=== PATIENT | male | born 2000 | race Hispanic/Latino ===

== ENCOUNTER 2020-12-04 15:12 | Emergency (ER) | payer BC ==
--- NOTE | 2020-12-04 19:06 | ER ---
Nurse's Notes [facility] Name: Luis Blanchard Age: 20 yrs Sex: Male : 2000 Arrival Date: 12/04/2020 Time: 15:17 Bed 12 Private MD: Diagnosis: Acute upper respiratory infection, unspecified;Coronavirus infection, unspecified;Other coronavirus as the cause of diseases classified elsewhere;Fever, unspecified Presentation: 12/04 15:30 Chief complaint: Patient states: "It started Tuesday with a hot feeling on the left side aa5 of my back and now I just have a headache on the back of my head and fatigued". Denies nausea/vomiting, denies dizziness. Denies fever. Coronavirus screen: fatigue. Ebola Screen: Patient negative for fever greater than or equal to 101.5 degrees Fahrenheit, and additional compatible Ebola Virus Disease symptoms. Initial Sepsis Screen: Does the patient meet any 2 criteria? No. Patient's initial sepsis screen is negative. Does the patient have a suspected source of infection? No. Patient's initial sepsis screen is negative. Risk Assessment: Do you want to hurt yourself or someone else? Patient reports no desire to harm self or others. Onset of symptoms was November 2020. 15:30 Method Of Arrival: Ambulatory aa5 15:30 Acuity: LUIS M 3 aa5 Triage Assessment: 18:30 Headache History: The patient has had previous headaches and this one is similar to iw previous episodes. General: Appears in no apparent distress. Behavior is calm, cooperative. Pain: Pain currently is 8 out of 10 on a pain scale. Pain began. 18:30 Pain: Also complains of no other associated symptoms. iw Historical: - Allergies: 15:32 No Known Allergies; aa5 - PMHx: 15:32 Asthma; aa5 - PSHx: 15:32 None; aa5 - Immunization history:: Client reports having NOT received the Covid vaccine. Flu vaccine is not up to date. - Social history:: Smoking status: Patient denies any tobacco usage or history of. Patient uses street drugs, marijuana. - Family history:: not pertinent. Screenin:05 Abuse screen: Denies threats or abuse. Denies injuries from another. Nutritional iw screening: No deficits noted. Tuberculosis screening: No symptoms or risk factors identified. Fall Risk None identified. Assessment: 18:30 General: Appears in no apparent distress. Behavior is calm, cooperative. Pain: iw Complains of pain in head and neck. Neuro: Level of Consciousness is awake, alert, obeys commands, Oriented to person, place, time, situation, Moves all extremities. Full function Reports headache. Respiratory: Respiratory effort is even, unlabored, Respiratory pattern is regular. Derm: Skin is intact, is healthy with good turgor. Musculoskeletal: Range of motion: intact in all extremities. Vital Signs: 15:30 BP 153 / 100; Pulse 100; Resp 18 S; Temp 99.9(O); Pulse Ox 98% on R/A; Weight 99.79 kg aa5 (R); Height 5 ft. 9 in. (175.26 cm) (R); 15:30 Body Mass Index 32.49 (99.79 kg, 175.26 cm) aa5 Miguel Coma Score: 18:51 Eye Response: spontaneous(4). Verbal Response: oriented(5). Motor Response: obeys jacobo commands(6). Total: 15. ED Course: 15:17 Patient arrived in ED. as 15:30 Arm band placed on. aa5 15:32 Triage completed. aa5 18:30 Patient has correct armband on for positive identification. iw 18:43 Victor Hugo Chi MD is Attending Physician. jacobo 18:48 Kourtney Mariee, RN is Primary Nurse. iw 19:05 Roger Raygoza MD is Referral Physician. jacobo 19:05 No provider procedures requiring assistance completed. Patient did not have IV access iw during this emergency room visit. Administered Medications: 18:56 Drug: Motrin (ibuprofen) 800 mg Route: PO; iw 19:00 Follow up: Response: No adverse reaction iw 18:56 Drug: Zithromax (azithromycin) 500 mg Route: PO; iw 19:00 Follow up: Response: No adverse reaction iw 18:56 Drug: predniSONE 60 mg Route: PO; iw 19:42 Follow up: Response: No adverse reaction iw Outcome: 19:05 Discharge ordered by . jacobo 19:05 Discharged to home ambulatory. iw 19:05 Condition: good 19:05 Discharge instructions given to patient, Instructed on discharge instructions, follow up and referral plans. medication usage, Demonstrated understanding of instructions, follow-up care, medications, Prescriptions given X 4. 19:06 Patient left the ED. iw Signatures: Victor Hugo Chi MD MD cha Martinez, Amelia as Kourtney Mariee RN RN iw Ariane Pastrana RN RN aa5 Corrections: (The following items were deleted from the chart) 15:39 15:30 BP 153 / 100; Pulse 100bpm; Resp 18bpm; Spontaneous; Pulse Ox 98% RA; Temp 97.6F aa5 Temporal; 99.79 kg Reported; Height 5 ft. 9 in. Reported; BMI: 32.4; aa5
--- NOTE | 2020-12-04 19:06 | EDPHYS ---
Physician Documentation [facility] Name: Luis Blanchard Age: 20 yrs Sex: Male : 2000 Arrival Date: 12/04/2020 Time: 15:17 Bed 12 Private MD: ED Physician Victor Hugo Chi HPI: 12/04 18:48 This 20 yrs old Male presents to ER via Ambulatory with complaints of jacobo Headache, Neck and Upper Back Pain. 18:48 The patient complains of pain to the top of head, forehead, left frontal area, left jacobo side of the back of head, left occipital area, left base of the skull, right frontal area, right side of the back of head, right occipital area and right base of the skull. The patient describes the headache as. Onset: The symptoms/episode began/occurred 3 day(s) ago. Associated signs and symptoms: Pertinent positives: malaise. Severity of symptoms: At its worst the pain was mild, in the emergency department the pain is unchanged. Headache History: The patient has had previous headaches and this one is similar to previous episodes. The patient has not experienced similar symptoms in the past. Historical: - Allergies: 15:32 No Known Allergies; aa5 - PMHx: 15:32 Asthma; aa5 - PSHx: 15:32 None; aa5 - Immunization history:: Client reports having NOT received the Covid vaccine. Flu vaccine is not up to date. - Social history:: Smoking status: Patient denies any tobacco usage or history of. Patient uses street drugs, marijuana. - Family history:: not pertinent. ROS: 18:48 Constitutional: Negative for fever, chills, and weight loss, Eyes: Negative for injury, jacobo pain, redness, and discharge, ENT: Negative for injury, pain, and discharge, Neck: Negative for injury, pain, and swelling, Cardiovascular: Negative for chest pain, palpitations, and edema, Respiratory: Negative for shortness of breath, cough, wheezing, and pleuritic chest pain, Abdomen/GI: Negative for abdominal pain, nausea, vomiting, diarrhea, and constipation, : Negative for injury, bleeding, discharge, and swelling, MS/Extremity: Negative for injury and deformity, Skin: Negative for injury, rash, and discoloration, Psych: Negative for depression, anxiety, suicide ideation, homicidal ideation, and hallucinations, Allergy/Immunology: Negative for hives, rash, and allergies, Endocrine: Negative for neck swelling, polydipsia, polyuria, polyphagia, and marked weight changes, Hematologic/Lymphatic: Negative for swollen nodes, abnormal bleeding, and unusual bruising. 18:48 Back: Positive for pain at rest, of the left trapezius, right trapezius, left scapular area and right scapular area. Exam: 18:48 Head/Face: Normocephalic, atraumatic. Eyes: Pupils equal round and reactive to light, jacobo extra-ocular motions intact. Lids and lashes normal. Conjunctiva and sclera are non-icteric and not injected. Cornea within normal limits. Periorbital areas with no swelling, redness, or edema. ENT: Nares patent. No nasal discharge, no septal abnormalities noted. Tympanic membranes are normal and external auditory canals are clear. Oropharynx with no redness, swelling, or masses, exudates, or evidence of obstruction, uvula midline. Mucous membranes moist. Neck: Trachea midline, no thyromegaly or masses palpated, and no cervical lymphadenopathy. Supple, full range of motion without nuchal rigidity, or vertebral point tenderness. No Meningismus. Chest/axilla: Normal chest wall appearance and motion. Nontender with no deformity. No lesions are appreciated. Cardiovascular: Regular rate and rhythm with a normal S1 and S2. No gallops, murmurs, or rubs. Normal PMI, no JVD. No pulse deficits. Respiratory: Lungs have equal breath sounds bilaterally, clear to auscultation and percussion. No rales, rhonchi or wheezes noted. No increased work of breathing, no retractions or nasal flaring. Abdomen/GI: Soft, non-tender, with normal bowel sounds. No distension or tympany. No guarding or rebound. No evidence of tenderness throughout. Back: No spinal tenderness. No costovertebral tenderness. Full range of motion. Skin: Warm, dry with normal turgor. Normal color with no rashes, no lesions, and no evidence of cellulitis. MS/ Extremity: Pulses equal, no cyanosis. Neurovascular intact. Full, normal range of motion. Neuro: Awake and alert, GCS 15, oriented to person, place, time, and situation. Cranial nerves II-XII grossly intact. Motor strength 5/5 in all extremities. Sensory grossly intact. Cerebellar exam normal. Normal gait. Psych: Awake, alert, with orientation to person, place and time. Behavior, mood, and affect are within normal limits. 18:48 Constitutional: The patient appears febrile, obese. 18:48 Musculoskeletal/extremity: DVT Exam: No signs of deep vein thrombosis. no pain, no swelling, no tenderness, negative Homans' sign noted on exam, no appreciated bluish discoloration, no erythema, no increased warmth. Vital Signs: 15:30 BP 153 / 100; Pulse 100; Resp 18 S; Temp 99.9(O); Pulse Ox 98% on R/A; Weight 99.79 kg aa5 (R); Height 5 ft. 9 in. (175.26 cm) (R); 15:30 Body Mass Index 32.49 (99.79 kg, 175.26 cm) aa5 [place] Coma Score: 18:51 Eye Response: spontaneous(4). Verbal Response: oriented(5). Motor Response: obeys jacobo commands(6). Total: 15. MDM: 18:51 Differential diagnosis: cluster headache, otitis, temporal arteritis, tension headache. jacobo Data reviewed: vital signs, nurses notes. Data interpreted: potline monitor: rate is 100 beats/min, rhythm is regular, Pulse oximetry: on room air is 98 %. Counseling: I had a detailed discussion with the patient and/or guardian regarding: the historical points, exam findings, and any diagnostic results supporting the discharge/admit diagnosis, lab results, the need for outpatient follow up, for definitive care, a family practitioner, a package reinspector. 18:57 Patient medically screened. [facility] 12/04 15:34 Order name: Strep [facility] 12/04 15:34 Order name: Flu [facility] 12/04 15:35 Order name: Group A Streptococcus Rapid Sc [facility] 12/04 15:35 Order name: Influenza Screen (A [facility] 12/04 18:02 Order name: Throat Culture [facility] 12/04 18:29 Order name: SARS-COV-2 RT PCR EDMS Administered Medications: 18:56 Drug: Motrin (ibuprofen) 800 mg Route: PO; iw 19:00 Follow up: Response: No adverse reaction iw 18:56 Drug: Zithromax (azithromycin) 500 mg Route: PO; iw 19:00 Follow up: Response: No adverse reaction iw 18:56 Drug: predniSONE 60 mg Route: PO; iw 19:42 Follow up: Response: No adverse reaction iw Disposition Summary: 12/04/20 19:05 Discharge Ordered Location: Home jacobo Problem: new jacobo Symptoms: have improved jacobo Condition: Stable jacobo Diagnosis - Acute upper respiratory infection, unspecified jacobo - Coronavirus infection, unspecified jacobo - Other coronavirus as the cause of diseases classified elsewhere jacobo - Fever, unspecified jacobo Followup: jacobo - With: Private Physician - When: 2 - 3 days - Reason: Recheck today's complaints, Continuance of care, Re-evaluation by your physician Followup: jacobo - With: - When: 2 - 3 days - Reason: Recheck today's complaints, Continuance of care, Re-evaluation by your physician Discharge Instructions: - Discharge Summary Sheet jacobo - Upper Respiratory Infection, Adult jacobo - Viral Respiratory Infection jacobo - Cool Mist Vaporizer jacobo - Upper Respiratory Infection, Adult, Kklh-[id number] jacobo - Cough, Adult, Ldzv-[id number] jacobo - Cough, Adult jacobo - Fever, Adult, Guqi-zz-Urst jacobo - COVID-19 jacobo - COVID-19 Frequently Asked Questions [facility] - COVID-19: Quarantine vs. Isolation - [facility] Forms: - Medication Reconciliation Form [facility] - Thank You Letter [facility] - Antibiotic Education [facility] - Prescription Opioid Use [facility] - Work release form tt3 Prescriptions: - albuterol sulfate 90 mcg/actuation Inhalation HFA aerosol inhaler - inhale 2 puff by INHALATION route every 4-6 hours; 1 puff; Refills: 0, Product jacobo Selection Permitted - Pepcid 20 mg Oral Tablet - take 1 tablet by ORAL route every 12 hours for 10 days; 20 tablet; Refills: 0, [facility] Product Selection Permitted - Prednisone 20 mg Oral Tablet - take 2 tablets by ORAL route once daily for 5 days; 10 tablet; Refills: 0, [facility] Product Selection Permitted - Zithromax 500 mg Oral Tablet - take 1 tablet by ORAL route once daily for 4 days; 4 tablet; Refills: 0, [facility] Product Selection Permitted Signatures: Dispatcher [employer] Victor Hugo Potts MD MD cha Williams, Irene RN RN Ariane Hauser RN RN aa5 Corrections: (The following items were deleted from the chart) 17:18 15:36 CORONAVIRUS+MR.LAB.BRZ ordered. EDMS EDMS
[2020-12-04] MEDS ORDERED: AZITHROMYCIN 250 MG TAB ONE (19:13)
[2020-12-04] MEDS ORDERED: IBUPROFEN 400 MG TAB ONE (19:14)
[2020-12-04] MEDS ORDERED: predniSONE 20 MG TAB ONE ×2 (19:14→19:18)
[2020-12-05 00:31] VITALS: BP 153/100; TEMP 99.9; O2SAT 98
== END 2020-12-04 19:06 | disposition home or self-care (01) ==
LOC: ER 15:12
DX: U07.1 COVID-19 (principal); J06.9 Acute upper respiratory infection, unspecified; R50.9 Fever, unspecified
CPT/HCPCS: 87070; 87081; 87804 ×2; 99283; U0003; J7512